=== PATIENT | female | born 1980 | race Caucasian/White ===

== ENCOUNTER 2017-01-05 13:19 | Inpatient (IN) | payer OTHER ==
--- NOTE | ~2017-01-05 | PA ---
Unit #: [id number] #: [id number] Patient: CLAUDE SUGGS [id number] [facility] [address] [place] [address] [id number] MR#: [id number] NAME: CLAUDE SUGGS ROOM: P204 Age: 36 Sex: F Admission Date: 01/05/2017 : 1980 Date of Assessment: 01/06/2017 Attending Physician: Sukhdeep Estrada M.D. Admitting Physician: Sukhdeep Estrada M.D. Primary Care Physician: Kaylah Smith A.P.R.N. PSYCHIATRIC ASSESSMENT IDENTIFYING INFORMATION The patient is a 36-year-old white female admitted to the [address] [place] [address] Unit complaining of a history of depression and cocaine abuse. CHIEF COMPLAINT "Just being real depressed." INFORMANT Patient, reliability is fair. HISTORY OF PRESENT ILLNESS The patient is a 36-year-old white female last admitted to this facility in late 2015 with a history of opioid dependence. The patient presented last evening to [facility] with suicidal ideation with plan. The patient reports that she has not been using opioids but more recently has been using crack cocaine on a daily basis. The patient denies abuse of other substances. The report from [facility], however, indicates that the patient has also been using heroin. The patient is currently prescribed Effexor, clonidine, Seroquel, and Neurontin. She claims that she is prescribed Neurontin by her primary care physician secondary to carpal tunnel syndrome pain. When seen today, the patient continues to endorse sad mood and suicidal ideation. For more complete history of present illness, please refer to previously dictated notes. PAST PSYCHIATRIC HISTORY Reviewed, no changes. PAST MEDICAL HISTORY Reviewed, no changes. MEDICATIONS Effexor XR, clonidine, Seroquel, and Neurontin. ALLERGIES None. FAMILY HISTORY Noncontributory. SOCIAL HISTORY Reviewed, no changes. Unit #: [id number] #: [id number] Patient: CLAUDE SUGGS MENTAL STATUS EXAMINATION Examination at this time reveals the patient to be an obese white female appearing her stated age. She is in no apparent physical distress at the time of examination. She is awake, alert, and oriented in all spheres. Her mood is mildly dysphoric, her affect constricted. Speech is generally well-coherent. There are no gross deficits in memory or cognition noted. Intelligence is judged to be in the average range, based on fund of knowledge. The patient is generally cooperative during interview. She is currently endorsing positive suicidal ideation. She denies homicidal ideation. She denies any psychotic symptoms. Her judgment and insight appear to be reasonably intact. ASSETS AND LIABILITIES The patient's assets are to be assessed. Liabilities: Ongoing substance use. DIAGNOSTIC IMPRESSION 1. Opioid use disorder. 2. Cocaine use disorder. 3. Dysthymic disorder. 4. Carpal tunnel syndrome per patient's history. TREATMENT PLAN The patient remains hospitalized for safety and stabilization. I will go ahead and institute the COWS protocol, and we will increase Effexor XR from 150 to 225 mg daily to address the patient's depressive symptoms. The patient will participate in appropriate (1) __ activities. I have concerns regarding potential abuse of Neurontin given the patient's opiate abuse history, but we will reluctantly continue this medicine in the hospital. ESTIMATED LENGTH OF STAY 3 to 5 days. Dictated by... Sukhdeep Estrada M.D. Alicia TD: 01/06/2017 13:51 JOB #: [id number] PSYCHIATRIC ASSESSMENT X Sukhdeep Estrada MD X PSYCHIATRIC ASSESSMENT
--- NOTE | ~2017-01-05 | PN ---
Unit #: [id number] #: [id number] Patient: CLAUDE SUGGS [id number] [facility] [address] [place] [address] [id number] MR#: [id number] NAME: CLAUDE SUGGS ROOM: P202 Age: 36 Sex: F Admission Date: 01/05/2017 : 1980 Attending Physician: Sukhdeep Estrada M.D. Admitting Physician: Sukhdeep Estrada M.D. Primary Care Physician: Yohannes Peters PROGRESS NOTES DATE 01/07/2017 DISCUSSION The patient admits that she has been using opiates in addition to crack cocaine prior to coming to the hospital and is having symptoms of opioid withdrawal. We have instituted the COWS protocol. The patient does state that she will return home to the home that she shares with her uncle in [facility] upon discharge which is likely to take place as early as tomorrow. Dictated by... Sukhdeep Estrada M.D. CB/miroslava TD: 01/07/2017 21:20 JOB #: [id number] DOROTHY PROGRESS NOTES X Sukhdeep Estrada MD PROGRESS NOTE
--- NOTE | ~2017-01-05 | DS ---
Unit #: [id number] #: [id number] Patient: CLAUDE SUGGS [id number] [facility] [address] [place] [address] [id number] I MR#: [id number] NAME: CLAUDE SUGGS ROOM: [facility][Note 3] Age: 36 Sex: F Admission Date: 01/05/2017 : 1980 Discharge Date: 01/08/2017 Attending Physician: Sukhdeep Estrada M.D. Primary Care Physician: Kaylah Smith A.P.R.N. DISCHARGE SUMMARY REASON FOR ADMISSION The patient is a 36-year-old white female, admitted for depression as well as abuse of cocaine, opioids, and suicidal ideation. HOSPITAL COURSE The patient was admitted to the [address] [place] [address] unit and placed on routine detoxification protocol for opioids. She was continued on previously prescribed medications with dosage increase of Effexor to 225 mg q.a.m. The patient's stay in the hospital was an otherwise uneventful one. Her detox went smoothly and by 01/08/2017, she was in much brighter spirits and requesting discharge, it was so ordered. FINAL DIAGNOSES Dysthymic disorder, cocaine use disorder, opioid use disorder. DISPOSITION ON DISCHARGE The patient is discharged on the following medications; Neurontin 1200 mg t.i.d. for anxiety, Effexor XR 225 mg daily for depression, Catapres 0.1 mg b.i.d. for hypertension. DISCHARGE INSTRUCTIONS No dietary or physical restrictions were placed on the patient at the time of discharge. FOLLOW UP She will follow up through the auspices of community mental health resources in the [facility]. PROGNOSIS Her prognosis is considered fair. Dictated by... Sukhdeep Estrada M.D. CB/wilfrid TD: 01/09/2017 01:06 JOB #: [id number] Unit #: [id number] #: [id number] Patient: CLAUDE SUGGS DISCHARGE SUMMARY Page 1 of 1 X Sukhdeep Estrada MD X DISCHARGE SUMMARY
[2017-01-06 13:42] LABS: BASOPHIL% 0.5 % (0-2.5); EOSINOPHIL# 0.3 X10e3 (0-0.7); EOSINOPHIL% 5.2 % (0.0-7.0); HEMATOCRIT 38.6 % (35.0-45.0); HEMOGLOBIN 12.8 gm/dL (12.0-16.0); LYMPHOCYTE# 2.5 X10e3 (1.0-3.5); LYMPHOCYTE% 45.9 % (17.0-45.0); MEAN CELL VOLUME 93.2 FL (83-96); MEAN CORPUSCULAR HGB CONC 33.2 g/dL (30-36); MEAN PLATELET VOLUME 9.1 FL (6.5-11.5); MONOCYTE# 0.4 X10e3 (0-1.0); MONOCYTE% 7.3 % (3.0-12.0); NEUTROPHIL# 2.3 X10e3 (1.5-7.1); NEUTROPHIL% 41.1 % (40-75); PLATELET COUNT 184 X10e3 (140-420); RED BLOOD COUNT 4.14 X10e (3.90-5.30); RED CELL DISTRIBUTION WIDTH 15.6 % (11.0-15.5); WHITE BLOOD COUNT 5.5 X10e3 (4.0-10.5)
[2017-01-06 13:53] LABS: DIFF IND NO
[2017-01-06 14:06] LABS: THYROID STIMULATING HORMONE 0.23 uIU/ml (0.34-5.60)
[2017-01-06 14:08] LABS: ALKALINE PHOSPHATASE 48 U/L (32-92); ALT (SGPT) 33 U/L (10-40); AST (SGOT) 34 U/L (10-42); BILIRUBIN,TOTAL 0.1 mg/dL (0.2-2.0); BLOOD UREA NITROGEN 10 mg/dL (9-23); CALCIUM SERUM 8.8 mg/dL (8.4-10.2); CARBON DIOXIDE 27 mmol/L (22-31); CHLORIDE 107 mmol/L (100-111); CREATININE SERUM 0.8 mg/dL (0.6-1.4); GLOM FILT RATE Estimated ABOVE60 mL/min (>60); GLUCOSE FASTING 114 mg/dL (70-110); PROTEIN TOTAL SERUM 5.8 g/dL (6.0-8.3); SODIUM 140 mmol/L (135-145)
[2017-01-06 14:13] LABS: FREE THYROXIN (T4) 1.09 ng/dL (0.58-1.64)
[2017-01-06 14:33] LABS: URINE APPEARANCE CLEAR; URINE BILIRUBIN NEG (NEG); URINE BLOOD NEG (NEG); URINE COLOR YELLOW; URINE GLUCOSE NEG (NEG); URINE KETONE NEG (NEG); URINE LEUKOCYTE ESTERASE TRACE (NEG); URINE NITRATE NEG (NEG); URINE PH 6.5 (5-8); URINE PROTEIN NEG (NEG); URINE SPECIFIC GRAVITY 1.005 (1.003-1.035); URINE UROBILINOGEN 0.2 MG/DL (NEG)
[2017-01-06 14:37] LABS: URBCS1 AUWI 0-2 /[HPF] (0-2); URINE BACTERIA AUWI NEG (NEGATIVE); URINE SQUAMOUS EPITHELIAL CELL OCC /[HPF]; UWBCS1 AUWI 0-2 (0-5)
[2017-01-06 14:50] LABS: AMPHETAMINE NEG (NEG); BARBITURATES NEG (NEG); BENZODIAZEPINES NEG (NEG); COCAINE POS (NEG); MARIJUANA NEG (NEG); OPIATES POS (NEG); TRICYCLIC ANTIDEPRESSANTS POS (NEG); U METHADONE NEG (NEG)
== END 2017-01-08 14:15 | DRG 881 ==
LOC: P2S 13:19
PROVIDERS: Specialist
PROC: HZ2ZZZZ Detoxification Services for Substance Abuse Treatment (ICD-10-PCS; principal; 2017-01-05)
DX: F34.1 Dysthymic disorder (principal); R45.851 Suicidal ideations; F11.10 Opioid abuse, uncomplicated; F14.10 Cocaine abuse, uncomplicated
CPT/HCPCS: 80053; 80307; 81003; 84439; 84443; 84703; 85025; 87806